=== PATIENT | male | born 1935 | race Caucasian/White ===

== ENCOUNTER 2021-09-24 08:59 | Emergency (ER) | payer MEDICARE ==
[~2021-09-24] VITALS: Ht 190.5 cm; Wt 77.1 kg
[2021-09-24] MEDS ORDERED: PREDNISONE50 MG PO (11:43)
[2021-09-24] MEDS ORDERED: BROMFED DM COU118 ML PO (11:43)
== END 2021-09-24 11:45 | disposition home or self-care (01) ==
LOC: ER 09:15
DX: R05.9 Cough, unspecified (principal); J06.9 Acute upper respiratory infection, unspecified; R50.9 Fever, unspecified; I10 Essential (primary) hypertension; E78.5 Hyperlipidemia, unspecified; N18.9 Chronic kidney disease, unspecified
CPT/HCPCS: 71045; 99283